=== PATIENT | male | born 1955 | race Caucasian/White ===

== ENCOUNTER 2016-07-29 18:41 | Emergency (ER) | payer BC ==
[~2016-07-29] VITALS: Ht 185.4 cm; Wt 159.1 kg
[2016-07-29 19:44] LABS: HEMATOCRIT 44.4 % (38.0-50.0); MCH 30.3 PG (29.0-34.0); MCHC 32.7 G/DL (30.0-36.0); MCV 92.9 FL (86-99); MEAN PLAT.VOLUME 10.8 uM^3 (9.0-12.4); PLATELET COUNT 238 K/uL (156-360); RBC DIS.WIDTH-CV 12.4 % (11.8-14.6); RBC DIS.WIDTH-SD 42.9 % (39-53); RED BLOOD COUNT 4.78 M/uL (4.00-5.50); WHITE BLOOD COUNT 14.4 K/uL (4.1-10.2)
[2016-07-29 19:55] LABS: CHLORIDE 105 mEq/L (99-109); POTASSIUM 4.8 mEq/L (3.7-5.4); SODIUM 136 mEq/L (136-147)
[2016-07-29 19:57] LABS: GLUCOSE 116 mg/dL (70-99)
[2016-07-29 19:58] LABS: ANION GAP 10 MEQ/L (2-14)
[2016-07-29 20:02] LABS: UREA NITROGEN (BUN) 18 mg/dL (9-23)
[2016-07-29 20:05] LABS: GFR ESTIMATE (CALCULATED) 47 mL/min/
[2016-07-29 20:23] LABS: ADD MIUA? YES; BILIRUBIN NEGATIVE; BLOOD SMALL; COLOR AMBER ((YELLOW)); GLUCOSE (STRIP) NEGATIVE; KETONES 5; LEUKOCYTES LARGE; NITRITE NEGATIVE; PROTEIN (STRIP) 30; SPECIFIC GRAVITY 1.025 (1.000-1.030); UROBILINOGEN 0.2 MG/DL (0.2-1.0)
[2016-07-29 20:51] LABS: EPITHELIAL CELLS 2+ /HPF
[2016-07-29 20:52] LABS: BACTERIA 2+ /HPF; CASTS PRESENT /LPF; HYALINE CASTS RARE /LPF; MUCUS NONE SEEN /LPF; RED BLOOD CELLS 0-5 /HPF (0-5); UCUL ADDED? YES; WHITE BLOOD CELLS TNTC /HPF (0-5)
[2016-07-29] MEDS ORDERED: LIDODERM 5% P1 PATCH TD (22:31)
[2016-07-29] MEDS ORDERED: CIPRO500 MG PO (22:31)
[2016-07-29] MEDS ORDERED: FLOMAX0.4 MG PO (23:27)
[2016-07-29 23:32] VITALS: BP 113/74
== END 2016-07-29 23:33 | disposition home or self-care (01) ==
LOC: EME 18:41
DX: N12 Tubulo-interstitial nephritis, not specified as acute or chronic (principal); N13.2 Hydronephrosis with renal and ureteral calculous obstruction; Z90.49 Acquired absence of other specified parts of digestive tract; Z98.84 Bariatric surgery status; Z87.442 Personal history of urinary calculi
CPT/HCPCS: 74176; 80048; 81003; 85027; 87077; 87086; 87186; 99281; 99285; J0696; J1885; J2270; J2405; J7030; J7050